=== PATIENT | male | born 1945 | race Caucasian/White ===

== ENCOUNTER 2016-07-27 08:01 | Emergency (ER) | payer MEDICARE ==
[~2016-07-27] VITALS: Ht 177.8 cm; Wt 95.3 kg
[2016-07-27] MEDS ORDERED: ATOR20TA58 PO (08:30)
[2016-07-27] MEDS ORDERED: TAMS0.4C97 PO (08:30)
[2016-07-27] MEDS ORDERED: ASPI81TA2 PO (08:30)
[2016-07-27] MEDS ORDERED: ATEN25TA PO (08:30)
--- NOTE | 2016-07-27 08:55 | PHYS DOC ---
Past Medical History Past Medical History: Angina, High Cholesterol, Hypertension Past Surgical History: Cholecystectomy Additional Past Surgical Histo: CARDIAC AND KIDNEY STENTS Alcohol Use: None Drug Use: None Adult General Chief Complaint Chief Complaint: left side pain HPI HPI Patient is a 70 year old male who states he was driving from [place] to [place] when a couple of nights ago he slept in his van at a rest stop and the next day he had pain in his left side which has persisted. Patient does not recall any acute injury to the area, denies assault, car wreck, fall. He denies fever, chills, cough, shortness of air. He's never had this before. He purchased a topical spray at the drug store which has not helped. He has not tried any oral pain medication. Patient takes atenolol, atorvastatin, and aspirin 81 mg. He does not take any other blood thinner. History of renal artery stent but states his kidney function is fine. No history of bleeding ulcers. He quit smoking 7 years ago. PCP in [facility] where he lives. Review of Systems Review of Systems Constitutional: Denies fever or chills [] HENT: Denies nasal congestion or sore throat [] Respiratory: Denies cough or shortness of breath [] Cardiovascular: Denies chest pain : Denies dysuria or hematuria [] Musculoskeletal: As in history of present illness Integument: Denies rash or skin lesions [] Neurologic: Denies headache, focal weakness or sensory changes [] Physical Exam Physical Exam Constitutional: Well developed, well nourished, no acute distress, non-toxic appearance. Alert, mentating normally, reclining on the bed watching TV. HENT: Normocephalic, atraumatic, bilateral external ears normal, nose normal. [] Eyes: conjunctiva normal, no discharge. [] Neck: Normal range of motion, no stridor. [] Cardiovascular:Heart rate regular rhythm, no murmur [] Lungs & Thorax: Bilateral breath sounds clear to auscultation , no wheezes, rales, rhonchi, able to take a good full deep breath without difficulty. Chest wall: No point tenderness to palpation, no crepitus, no bruising, no zoster lesions. Skin: Warm, dry, no erythema, no rash. [] Back: No tenderness, no CVA tenderness. [] Extremities: No tenderness, no cyanosis, no clubbing, ROM intact, no edema. [] Neurologic: Alert and oriented X 3, normal motor function, normal sensory function, no focal deficits noted. [] Current Patient Data Vital Signs Vital Signs Date Time Temp Pulse Resp B/P Pulse Ox O2 Delivery O2 Flow Rate FiO2 07/27/16 08:12 98.7 89 18 127/59 97 Room Air 98.7 EKG EKG [] Radiology/Procedures Radiology/Procedures [] Course & Med Decision Making Course & Med Decision Making Pertinent Labs and Imaging studies reviewed. (See chart for details) 70-year-old male complaining of some pain on the left side after he slept wrong. No history of injury or zoster lesions. He hasn't tried any pain medications, did not know what to take. I don't believe the patient needs an x-ray, he has had no injury, there is no point tenderness. No symptoms to suggest pneumonia. I discussed OTC ibuprofen with him and educated on its use. [] Dragon Disclaimer Dragon Disclaimer This electronic medical record was generated, in whole or in part, using a voice recognition dictation system. Departure Departure Impression: Primary Impression: Muscle strain of chest wall Disposition: HOME, SELF-CARE Condition: STABLE Patient Instructions: Muscle Strain, [id number] Additional Instructions: As we discussed, I believe your pain is from a strained muscle. Ice may help, 15 -20 minutes out of every 1-2 hours. If not better in 5-7 days, see your doctor for recheck. If you do have fever, chills, cough, shortness of air, you should have a chest x-ray for recheck. Purchase [id number] ibuprofen 200 mg. Takes 3 at a time, total of 600 mg, every 6-8 hours as needed for pain. This is safe to combine with your other medications. Do not take on an empty stomach, either drink 8 ounces of liquid and or eat food with it. JAGDEEP BUNCH MD Jul 27, 2016 08:55
[2016-07-27 09:09] VITALS: BP 120/59
== END 2016-07-27 09:15 | disposition home or self-care (01) ==
LOC: ER 08:01
DX: S29.011A Strain of muscle and tendon of front wall of thorax, initial encounter (principal); E78.00 Pure hypercholesterolemia, unspecified; I10 Essential (primary) hypertension; Z79.82 Long term (current) use of aspirin; Z87.891 Personal history of nicotine dependence; Z79.899 Other long term (current) drug therapy; Z95.5 Presence of coronary angioplasty implant and graft; Z96.0 Presence of urogenital implants; X58.XXXA Exposure to other specified factors, initial encounter; Y93.89 Activity, other specified; Y92.89 Other specified places as the place of occurrence of the external cause; Y99.8 Other external cause status
CPT/HCPCS: 99281